=== PATIENT | female | born 1990 | race Caucasian/White ===

== ENCOUNTER 2023-01-03 08:13 | Day surgery (SDC) | payer BC ==
[~2023-01-03 08:13] MED LIST: Lactated Ringers 1,000 ML IV SCH; ceFAZolin 2 GM in Premix Bag 1 BAG IV SCH
[2023-01-03] MEDS ORDERED: HYDROmorphone 1 MG/ML Syringe IVPUSH PRN (08:22)
[2023-01-03] MEDS ORDERED: Morphine 2 MG/ML SYRINGE IVPUSH PRN (08:22)
[2023-01-03] MEDS ORDERED: Metoclopramide 10 MG/2 ML SDV IVPUSH PRN (08:22)
[2023-01-03] MEDS ORDERED: Albuterol 0.083% 2.5 MG/3 ML Neb Soln NEB PRN (08:22)
[2023-01-03] MEDS ORDERED: fentaNYL 50 MCG/ML SDV IVPUSH PRN (08:22)
[2023-01-03] MEDS ORDERED: Naloxone 0.4 MG/ML SDV IVPUSH PRN (08:22)
[2023-01-03] MEDS ORDERED: Ondansetron 4 MG/2 ML SDV IVPUSH PRN (08:22)
[2023-01-03] MEDS ORDERED: Albuterol/Ipratropium 3.0-0.5 MG/3 ML Neb Soln NEB ONE (09:42)
[2023-01-03] MEDS ORDERED: Ketorolac 30 MG/ML SDV ONE (09:51)
[2023-01-03] MEDS ORDERED: Lidocaine 2% 5 ML SDV ONE (09:51)
[2023-01-03] MEDS ORDERED: fentaNYL 100 MCG/2 ML SDV ONE (09:51)
[2023-01-03] MEDS ORDERED: Dexmedetomidine 200 MCG/2 ML SDV ONE (09:51)
[2023-01-03] MEDS ORDERED: Ondansetron 4 MG/2 ML SDV ONE (09:51)
[2023-01-03] MEDS ORDERED: Dexamethasone 4 MG/ML 5 ML MDV ONE (09:51)
[2023-01-03] MEDS ORDERED: Propofol 200 MG/20 ML SDV ONE (09:51)
[2023-01-03] MEDS ORDERED: Lidocaine 1% with EPINEPHrine 1:100,000 10 ML MDV ONE (09:53)
[2023-01-03] MEDS ORDERED: ceFAZolin 2 GM Vial ONE (09:53)
[2023-01-03] MEDS ORDERED: Bupivacaine 0.5% 30 ML SDV ONE (09:53)
[2023-01-03] MEDS ORDERED: Water For Injection, Sterile 20 ML ONE (10:03)
== END 2023-01-03 11:50 | disposition home or self-care (01) ==
LOC: MW.SDS 08:13
PROVIDERS: ATTEND Surgery
DX: L72.0 Epidermal cyst (principal); K58.9 Irritable bowel syndrome, unspecified; Z98.890 Other specified postprocedural states; Z79.899 Other long term (current) drug therapy
CPT/HCPCS: 11443; 81025; J0690; J1100; J1885; J2405; J2704; J3010; J7120; J3490